=== PATIENT | male | born 1955 | race Caucasian/White ===

== ENCOUNTER 2019-09-11 08:15 | Emergency (ER) | payer MEDICAID, OTHER ==
[~2019-09-11] VITALS: Ht 167.6 cm; Wt 69.9 kg
[~2019-09-11 08:15] MED LIST: LEVE750T4 PO; LEVO100T4 PO; LITH300T4 PO; OLAN20TA2 PO; OXCA300T28 PO; TOPI50TA PO
[2019-09-11] MEDS ORDERED: PALI234D IM (08:33)
[2019-09-11] MEDS ORDERED: SODIUM CHLORIDE 0.9% 1,000 ML IV ONE (09:00)
[2019-09-11] MEDS ORDERED: KETOROLAC TROMETHAMINE 30 MG/ML VIAL IVP ONE (09:00)
[2019-09-11 09:18] LABS: LYMPHOCYTES # (AUTO) 1.3 K/uL (1.0-4.8)
[2019-09-11 09:38] LABS: ANION GAP 7 mmol/L (8-16); CALCIUM, TOTAL 8.9 mg/dL (8.8-10.5); CARBON DIOXIDE 30 mmol/L (22-29); CHLORIDE 101 mmol/L (98-107); CREATININE 0.95 mg/dL (0.60-1.30); GLOMERULAR FILTR. RATE CALC > 60 mL/min (>60); GLUCOSE,RANDOM 134 mg/dL (70-110); POTASSIUM 3.5 mmol/L (3.5-5.1); SODIUM SERUM 138 mmol/L (136-145); UREA NITROGEN, BLOOD 13 mg/dL (7-18)
[2019-09-11 09:43] LABS: BASOPHILS % (AUTO) 0.2 % (0.0-2.0); EOSINOPHILS % (AUTO) 0.8 % (1.0-6.0); HEMATOCRIT 42.2 % (41-53); HEMOGLOBIN 14.3 g/dL (13.5-17.5); LYMPHOCYTES % (AUTO) 11.6 % (22.0-44.0); MEAN CORPUSCULAR HEMOGLOBIN 30.5 pg (26.0-34.0); MEAN CORPUSCULAR HGB CONC 33.8 G/dL (31.0-37.0); MEAN CORPUSCULAR VOLUME 90 fL (80-100); MONOCYTES # (AUTO) 0.8 K/uL (0.1-1.0); MONOCYTES % (AUTO) 7.2 % (2.0-9.0); NEUTROPHILS # (AUTO) 8.7 K/uL (1.8-7.7); NEUTROPHILS % (AUTO) 80.2 % (40.0-70.0); PLATELET COUNT (AUTO) 206 K/uL (150-450); RED BLOOD CELL COUNT(AUTO) 4.68 MIL/uL (4.50-5.90); RED CELL DISTRIBUTION WIDTH 14.4 % (11.5-14.5)
[2019-09-11 09:53] LABS: ALANINE AMINOTRANSFERASE 44 U/L (12-78); ALBUMIN 3.3 g/dL (3.4-5.0); ALKALINE PHOSPHATASE 71 U/L (46-116); ASPARTATE AMINOTRANSFERASE 24 U/L (15-37); BILIRUBIN,TOTAL 0.3 mg/dL (0.1-1.0); LIPASE 84 U/L (73-393); TOTAL PROTEIN, SERUM 6.4 g/dL (6.4-8.2)
[2019-09-11 10:24] LABS: APPEARANCE,URINE CLEAR (CLEAR); BACTERIA,URINE None Seen /HPF (None Seen); BILIRUBIN,URINE NEGATIVE (NEGATIVE); GLUCOSE, URINE (UA) NEGATIVE (NEGATIVE); KETONES,URINE NEGATIVE (NEGATIVE); LEUKOCYTE ESTERASE ,URINE NEGATIVE (NEGATIVE); NITRATE,URINE NEGATIVE (NEGATIVE); OCCULT BLOOD,URINE NEGATIVE (NEGATIVE); PROTEIN,URINE NEGATIVE (NEGATIVE); RBC,URINE None Seen /HPF (0-2); UROBILINOGEN,URINE 0.2 mg/dL (<=1.0); WBC,URINE None Seen /HPF (0-5)
[2019-09-11 10:34] LABS: AMPHET/METH SCREEN,URINE NEGATIVE (NEGATIVE); BARBITURATE SCREEN, URINE NEGATIVE (NEGATIVE); BENZODIAZEPINES SCREEN,URINE NEGATIVE (NEGATIVE); CANNABINOID SCREEN,URINE NEGATIVE (NEGATIVE); COCAINE SCREEN,URINE NEGATIVE (NEGATIVE); METHADONE SCREEN, URINE NEGATIVE (NEGATIVE); OPIATE SCREEN,URINE NEGATIVE (NEGATIVE)
[2019-09-11 10:47] LABS: PHENCYCLIDINE SCREEN,URINE NEGATIVE (NEGATIVE)
[2019-09-11] MEDS ORDERED: ACETAMINOPHEN 500 MG TABLET PO ONE (11:30)
[2019-09-11] MEDS ORDERED: MAGNESIUM CITRATE 300 ML ORAL SOLUTION PO ONE (11:30)
[2019-09-11 12:06] VITALS: BP 102/68
== END 2019-09-11 13:20 | disposition home or self-care (01) ==
LOC: EMS 08:15
DX: E27.9 Disorder of adrenal gland, unspecified (principal); Z76.5 Malingerer [conscious simulation]; F17.210 Nicotine dependence, cigarettes, uncomplicated; J44.9 Chronic obstructive pulmonary disease, unspecified; F32.9 Major depressive disorder, single episode, unspecified; F20.9 Schizophrenia, unspecified; Z88.0 Allergy status to penicillin
CPT/HCPCS: 36415; 74176; 80053; 80307; 81001; 83690; 85025; 96374; 99284; G0480; J1885; J7030

== ENCOUNTER 2019-09-12 02:06 | Emergency (ER) | payer OTHER ==
[~2019-09-12] VITALS: Ht 167.6 cm; Wt 70.0 kg
[~2019-09-12 02:06] MED LIST changes: -LEVE750T4 PO; -LEVO100T4 PO; -LITH300T4 PO; -OLAN20TA2 PO; -OXCA300T28 PO; +PALI234D IM; -TOPI50TA PO
[2019-09-12] MEDS ORDERED: KETOROLAC TROMETHAMINE 30 MG/ML VIAL IVP ONE (02:30)
[2019-09-12] MEDS ORDERED: ALBUTEROL SULFATE HFA 90 MCG/PUFF 8 GM INHALER IH ONE (02:30)
[2019-09-12] MEDS ORDERED: MAGNESIUM CITRATE 300 ML ORAL SOLUTION PO ONE (02:30)
[2019-09-12] MEDS ORDERED: ACETAMINOPHEN 500 MG TABLET PO ONE (02:30)
[2019-09-12] MEDS ORDERED: SODIUM CHLORIDE 0.9% 1,000 ML IV ONE (02:30)
[2019-09-12 03:29] LABS: BASOPHILS % (AUTO) 0.3 % (0.0-2.0); HEMATOCRIT 40.9 % (41-53); HEMOGLOBIN 13.8 g/dL (13.5-17.5); LYMPHOCYTES # (AUTO) 1.7 K/uL (1.0-4.8); LYMPHOCYTES % (AUTO) 17.4 % (22.0-44.0); MEAN CORPUSCULAR HEMOGLOBIN 30.5 pg (26.0-34.0); MEAN CORPUSCULAR HGB CONC 33.8 G/dL (31.0-37.0); MEAN CORPUSCULAR VOLUME 90 fL (80-100); MONOCYTES # (AUTO) 1.1 K/uL (0.1-1.0); NEUTROPHILS # (AUTO) 6.7 K/uL (1.8-7.7); NEUTROPHILS % (AUTO) 70.3 % (40.0-70.0); PLATELET COUNT (AUTO) 206 K/uL (150-450); RED BLOOD CELL COUNT(AUTO) 4.53 MIL/uL (4.50-5.90); RED CELL DISTRIBUTION WIDTH 14.7 % (11.5-14.5)
[2019-09-12 03:46] LABS: ANION GAP 2 mmol/L (8-16); CALCIUM, TOTAL 8.8 mg/dL (8.8-10.5); CARBON DIOXIDE 35 mmol/L (22-29); CHLORIDE 102 mmol/L (98-107); CREATININE 0.97 mg/dL (0.60-1.30); GLOMERULAR FILTR. RATE CALC > 60 mL/min (>60); GLUCOSE,RANDOM 118 mg/dL (70-110); POTASSIUM 3.8 mmol/L (3.5-5.1); SODIUM SERUM 139 mmol/L (136-145); UREA NITROGEN, BLOOD 14 mg/dL (7-18)
[2019-09-12 03:52] LABS: ALANINE AMINOTRANSFERASE 43 U/L (12-78); ALKALINE PHOSPHATASE 87 U/L (46-116); ASPARTATE AMINOTRANSFERASE 20 U/L (15-37); BILIRUBIN,TOTAL 0.1 mg/dL (0.1-1.0); LIPASE 95 U/L (73-393)
[2019-09-12 04:28] VITALS: BP 125/75
== END 2019-09-12 05:00 | disposition home or self-care (01) ==
LOC: EMS 02:06
DX: S22.32XA Fracture of one rib, left side, initial encounter for closed fracture (principal); J44.9 Chronic obstructive pulmonary disease, unspecified; F32.9 Major depressive disorder, single episode, unspecified; F20.9 Schizophrenia, unspecified; F17.210 Nicotine dependence, cigarettes, uncomplicated; Z88.0 Allergy status to penicillin; X58.XXXA Exposure to other specified factors, initial encounter; Y93.89 Activity, other specified; Y92.89 Other specified places as the place of occurrence of the external cause; Y99.8 Other external cause status
CPT/HCPCS: 36415; 71101; 80053; 83690; 83880; 84484; 85025; 94640; 96361; 96374; 99284; G0238; J1885; J7030; J3535

== ENCOUNTER 2019-10-26 08:39 | Emergency (ER) | payer OTHER ==
[~2019-10-26] VITALS: Ht 177.8 cm; Wt 75.0 kg
[2019-10-26 09:37] LABS: BASOPHILS % (AUTO) 0.8 % (0.0-2.0); EOSINOPHILS % (AUTO) 1.6 % (1.0-6.0); HEMATOCRIT 41.5 % (41-53); HEMOGLOBIN 13.8 g/dL (13.5-17.5); LYMPHOCYTES # (AUTO) 1.6 K/uL (1.0-4.8); LYMPHOCYTES % (AUTO) 18.1 % (22.0-44.0); MEAN CORPUSCULAR HEMOGLOBIN 30.2 pg (26.0-34.0); MEAN CORPUSCULAR HGB CONC 33.2 G/dL (31.0-37.0); MEAN CORPUSCULAR VOLUME 91 fL (80-100); MONOCYTES # (AUTO) 0.8 K/uL (0.1-1.0); MONOCYTES % (AUTO) 9.1 % (2.0-9.0); NEUTROPHILS # (AUTO) 6.4 K/uL (1.8-7.7); NEUTROPHILS % (AUTO) 70.4 % (40.0-70.0); PLATELET COUNT (AUTO) 275 K/uL (150-450); RED BLOOD CELL COUNT(AUTO) 4.56 MIL/uL (4.50-5.90); RED CELL DISTRIBUTION WIDTH 15.2 % (11.5-14.5)
[2019-10-26 09:46] LABS: ANION GAP 5 mmol/L (8-16); CALCIUM, TOTAL 9.1 mg/dL (8.8-10.5); CARBON DIOXIDE 32 mmol/L (22-29); CHLORIDE 103 mmol/L (98-107); CREATININE 1.29 mg/dL (0.60-1.30); GLOMERULAR FILTR. RATE CALC 56 mL/min (>60); GLUCOSE,RANDOM 161 mg/dL (70-110); SODIUM SERUM 140 mmol/L (136-145); UREA NITROGEN, BLOOD 13 mg/dL (7-18)
[2019-10-26 09:52] LABS: ALANINE AMINOTRANSFERASE 33 U/L (12-78); ALBUMIN 3.2 g/dL (3.4-5.0); ALKALINE PHOSPHATASE 87 U/L (46-116); ASPARTATE AMINOTRANSFERASE 18 U/L (15-37); BILIRUBIN,TOTAL 0.2 mg/dL (0.1-1.0); TOTAL PROTEIN, SERUM 6.3 g/dL (6.4-8.2)
[2019-10-26 10:51] LABS: AMPHET/METH SCREEN,URINE NEGATIVE (NEGATIVE); BARBITURATE SCREEN, URINE NEGATIVE (NEGATIVE); BENZODIAZEPINES SCREEN,URINE NEGATIVE (NEGATIVE); CANNABINOID SCREEN,URINE NEGATIVE (NEGATIVE); COCAINE SCREEN,URINE NEGATIVE (NEGATIVE); METHADONE SCREEN, URINE NEGATIVE (NEGATIVE); OPIATE SCREEN,URINE NEGATIVE (NEGATIVE)
[2019-10-26 10:52] LABS: PHENCYCLIDINE SCREEN,URINE NEGATIVE (NEGATIVE)
[2019-10-26 11:09] VITALS: BP 117/70
== END 2019-10-26 13:31 | disposition home or self-care (01) ==
LOC: EMS 08:40
DX: F20.9 Schizophrenia, unspecified (principal); Z88.0 Allergy status to penicillin; Z20.828 Contact with and (suspected) exposure to other viral communicable diseases
CPT/HCPCS: 36415; 80053; 80307; 85025; 87426; 99284; G0480

== ENCOUNTER 2019-10-29 17:33 | Inpatient (IN) | payer MEDICAID ==
[~2019-10-29] VITALS: Ht 175.3 cm; Wt 65.1 kg
[2019-10-30 01:15] VITALS: BP 136/76
[2019-10-30] MEDS: ZOLPIDEM TARTRATE 10 MG TABLET PO PRN (01:31)
[2019-10-30] MEDS ORDERED: ALBUTEROL SULFATE HFA 90 MCG/PUFF 8 GM INHALER IH PRN (08:00)
[2019-10-30] MEDS ORDERED: OMEPRAZOLE 20 MG CAPSULE PO PRN (08:15)
[2019-10-30] MEDS ORDERED: DOCUSATE SODIUM 100 MG CAPSULE PO PRN (08:15)
[2019-10-30] MEDS ORDERED: BACITRACIN 28 GM OINTMENT TP PRN (08:15)
[2019-10-30] MEDS ORDERED: MAGNESIUM HYDROXIDE SUSPENSION 30 ML UDCUP PO PRN (08:15)
[2019-10-30] MEDS ORDERED: LOPERAMIDE HCL 2 MG CAPSULE PO PRN (08:15)
[2019-10-30] MEDS ORDERED: BENZOCAINE/MENTHOL LOZENGE PO PRN (08:15)
[2019-10-30] MEDS ORDERED: CloNIDine HCL 0.1 MG TABLET PO PRN (08:15)
[2019-10-30] MEDS ORDERED: ONDANSETRON HCL 4 MG TABLET PO PRN (08:15)
[2019-10-30] MEDS ORDERED: MAG HYDROX/AL HYDROX/SIMETH ES 30 ML SUSPENSION UDCUP PO PRN (08:15)
[2019-10-30] MEDS ORDERED: PETROLATUM,WHITE 28 GM JELLY TP PRN (08:15)
[2019-10-30 08:30] VITALS: BP 127/73
[2019-10-30] MEDS: IBUPROFEN 600 MG TABLET PO PRN (09:16)
[2019-10-30 16:20] VITALS: BP 122/71
[2019-10-30] MEDS: LORazepam 1 MG TABLET PO PRN (20:06)
[2019-10-30] MEDS: PALIPERIDONE 9 MG ER TABLET PO SCH (20:57)
[2019-10-30] MEDS: ACETAMINOPHEN 325 MG TABLET PO PRN (22:17)
[2019-10-31 04:43] VITALS: BP 125/82
[2019-10-31 08:25] VITALS: BP 102/64
[2019-10-31] MEDS: ACETAMINOPHEN 325 MG TABLET PO PRN (08:47)
[2019-10-31] MEDS: LORazepam 1 MG TABLET PO PRN ×2 (08:47→19:32)
[2019-10-31 16:27] VITALS: BP 126/83
[2019-10-31] MEDS: IBUPROFEN 600 MG TABLET PO PRN (19:32)
[2019-10-31] MEDS: PALIPERIDONE 9 MG ER TABLET PO SCH (20:03)
[2019-11-01 00:21] VITALS: BP 122/84
[2019-11-01] MEDS: ZOLPIDEM TARTRATE 10 MG TABLET PO PRN ×2 (00:23→21:56)
[2019-11-01] MEDS: LORazepam 1 MG TABLET PO PRN ×2 (00:23→17:13)
[2019-11-01 09:22] VITALS: BP 126/77
[2019-11-01] MEDS: IBUPROFEN 600 MG TABLET PO PRN (13:34)
[2019-11-01 16:13] VITALS: BP 135/83
[2019-11-01] MEDS: ACETAMINOPHEN 325 MG TABLET PO PRN (18:31)
[2019-11-01] MEDS: PALIPERIDONE 9 MG ER TABLET PO SCH (21:04)
[2019-11-02 01:14] VITALS: BP 123/71
[2019-11-02] MEDS: IBUPROFEN 600 MG TABLET PO PRN ×3 (04:46→18:09)
[2019-11-02 04:49] VITALS: BP 123/79
[2019-11-02 08:22] VITALS: BP 126/85
[2019-11-02] MEDS: HALOPERIDOL 5 MG TABLET PO PRN ×2 (09:03→13:43)
[2019-11-02] MEDS: LORazepam 1 MG TABLET PO PRN ×2 (09:03→13:42)
[2019-11-02 09:41] VITALS: BP 124/81
[2019-11-02 16:10] VITALS: BP 128/75
[2019-11-02] MEDS: PALIPERIDONE 9 MG ER TABLET PO SCH (20:29)
[2019-11-03 01:00] VITALS: BP 122/72
[2019-11-03 08:30] VITALS: BP 117/67
[2019-11-03] MEDS: LORazepam 1 MG TABLET PO PRN (08:30)
[2019-11-03] MEDS: IBUPROFEN 600 MG TABLET PO PRN ×2 (08:30→16:26)
[2019-11-03 08:33] VITALS: BP 117/67
[2019-11-03 14:01] VITALS: BP 135/92
[2019-11-03] MEDS: ACETAMINOPHEN 325 MG TABLET PO PRN ×2 (14:01→19:54)
[2019-11-03 16:38] VITALS: BP 101/70
[2019-11-03] MEDS: PALIPERIDONE 9 MG ER TABLET PO SCH (19:53)
[2019-11-03] MEDS: ALBUTEROL SULFATE HFA 90 MCG/PUFF 8 GM INHALER IH PRN (21:03)
[2019-11-04 00:05] VITALS: BP 136/84
[2019-11-04] MEDS: ZOLPIDEM TARTRATE 10 MG TABLET PO PRN ×2 (00:16→20:43)
[2019-11-04] MEDS: IBUPROFEN 600 MG TABLET PO PRN ×2 (00:16→18:30)
[2019-11-04 08:38] VITALS: BP 133/80
[2019-11-04] MEDS: LORazepam 1 MG TABLET PO PRN (09:56)
[2019-11-04 16:27] VITALS: BP 119/74
[2019-11-04] MEDS: PALIPERIDONE 9 MG ER TABLET PO SCH (20:33)
[2019-11-04] MEDS: ALBUTEROL SULFATE HFA 90 MCG/PUFF 8 GM INHALER IH PRN (21:04)
[2019-11-05 01:00] VITALS: BP 134/77
[2019-11-05] MEDS ORDERED: PALI9TAB15 PO (07:29)
[2019-11-05 08:46] VITALS: BP 115/78
== END 2019-11-05 13:00 | disposition home or self-care (01) | DRG 750 ==
LOC: B2S 20:45
PROVIDERS: ADMIT Psychiatry & Neurology Psychiatry; ATTEND Psychiatry & Neurology Psychiatry
DX: F20.0 Paranoid schizophrenia (principal); E03.9 Hypothyroidism, unspecified; G40.909 Epilepsy, unspecified, not intractable, without status epilepticus; K21.9 Gastro-esophageal reflux disease without esophagitis; G47.00 Insomnia, unspecified; K59.00 Constipation, unspecified; F19.10 Other psychoactive substance abuse, uncomplicated; Z88.0 Allergy status to penicillin
CPT/HCPCS: 84439; 87081; J3535

== ENCOUNTER 2020-01-14 11:49 | Emergency (ER) | payer MEDICAID, OTHER ==
[~2020-01-14] VITALS: Ht 175.3 cm; Wt 68.2 kg
[~2020-01-14 11:49] MED LIST changes: -PALI234D IM; +PALI9TAB15 PO
[2020-01-14 11:50] VITALS: BP 165/56
[2020-01-14] MEDS ORDERED: HYD25 PO (12:09)
[2020-01-14] MEDS ORDERED: METO25 PO (12:09)
[2020-01-14] MEDS ORDERED: ATOR10TA84 PO (12:09)
[2020-01-14] MEDS ORDERED: LEVO88TA4 PO (12:09)
[2020-01-14] MEDS ORDERED: TRIA1TAB5 PO (12:09)
[2020-01-14 14:18] LABS: ANION GAP 11 mmol/L (8-16); CALCIUM, TOTAL 9.6 mg/dL (8.8-10.5); CARBON DIOXIDE 29 mmol/L (22-29); CHLORIDE 101 mmol/L (98-107); CREATININE 0.68 mg/dL (0.60-1.30); GLOMERULAR FILTR. RATE CALC > 60 mL/min (>60); GLUCOSE,RANDOM 121 mg/dL (70-110); SODIUM SERUM 141 mmol/L (136-145); UREA NITROGEN, BLOOD 24 mg/dL (7-18)
[2020-01-14 14:21] LABS: BASOPHILS % (AUTO) 0.2 % (0.0-2.0); EOSINOPHILS % (AUTO) 1.2 % (1.0-6.0); HEMATOCRIT 48.2 % (41-53); HEMOGLOBIN 16.1 g/dL (13.5-17.5); LYMPHOCYTES % (AUTO) 16.8 % (22.0-44.0); MEAN CORPUSCULAR HEMOGLOBIN 29.5 pg (26.0-34.0); MEAN CORPUSCULAR HGB CONC 33.3 G/dL (31.0-37.0); MEAN CORPUSCULAR VOLUME 88 fL (80-100); MONOCYTES # (AUTO) 0.8 K/uL (0.1-1.0); MONOCYTES % (AUTO) 6.9 % (2.0-9.0); NEUTROPHILS % (AUTO) 74.9 % (40.0-70.0); PLATELET COUNT (AUTO) 258 K/uL (150-450); RED BLOOD CELL COUNT(AUTO) 5.45 MIL/uL (4.50-5.90); RED CELL DISTRIBUTION WIDTH 14.5 % (11.5-14.5)
[2020-01-14 14:24] LABS: ALANINE AMINOTRANSFERASE 31 U/L (12-78); ALBUMIN 4.2 g/dL (3.4-5.0); ALKALINE PHOSPHATASE 113 U/L (46-116); ASPARTATE AMINOTRANSFERASE 22 U/L (15-37); BILIRUBIN,TOTAL 0.3 mg/dL (0.1-1.0); LIPASE 80 U/L (73-393); TOTAL PROTEIN, SERUM 7.6 g/dL (6.4-8.2)
[2020-01-14 15:11] LABS: FREE T4 (FREE THYROXINE) 1.38 ng/dL (0.76-1.46); THYROID STIMULATING HORMONE 0.11 uIU/mL (0.36-3.74)
== END 2020-01-14 15:49 | disposition left against medical advice (07) ==
LOC: EMS 11:49
DX: R10.13 Epigastric pain (principal); F25.9 Schizoaffective disorder, unspecified; F17.210 Nicotine dependence, cigarettes, uncomplicated; J44.9 Chronic obstructive pulmonary disease, unspecified; F32.9 Major depressive disorder, single episode, unspecified; Z88.0 Allergy status to penicillin
CPT/HCPCS: 84439; 84443; 93005

== ENCOUNTER 2020-01-15 01:31 | Emergency (ER) | payer OTHER ==
[~2020-01-15] VITALS: Ht 172.7 cm; Wt 63.6 kg
[~2020-01-15 01:31] MED LIST changes: +ATOR10TA84 PO; +HYD25 PO; +LEVO88TA4 PO; +METO25 PO; +TRIA1TAB5 PO
[2020-01-15 03:14] VITALS: BP 115/64
== END 2020-01-15 05:03 | disposition home or self-care (01) ==
LOC: EMS 01:37
DX: M25.561 Pain in right knee (principal); J44.9 Chronic obstructive pulmonary disease, unspecified; F32.9 Major depressive disorder, single episode, unspecified; F20.9 Schizophrenia, unspecified; F17.210 Nicotine dependence, cigarettes, uncomplicated; Z88.0 Allergy status to penicillin
CPT/HCPCS: Z7502

== ENCOUNTER 2020-10-02 20:00 | Inpatient (IN) | payer OTHER ==
[~2020-10-02] VITALS: Ht 175.3 cm; Wt 59.5 kg
[2020-10-02 21:12] LABS: BASOPHILS % (AUTO) 0.3 % (0.0-2.0); EOSINOPHILS % (AUTO) 0.7 % (1.0-6.0); HEMOGLOBIN 15.8 g/dL (13.5-17.5); LYMPHOCYTES # (AUTO) 1.5 K/uL (1.0-4.8); LYMPHOCYTES % (AUTO) 11.1 % (22.0-44.0); MEAN CORPUSCULAR HEMOGLOBIN 30.1 pg (26.0-34.0); MEAN CORPUSCULAR HGB CONC 32.8 G/dL (31.0-37.0); MEAN CORPUSCULAR VOLUME 92 fL (80-100); MONOCYTES # (AUTO) 0.9 K/uL (0.1-1.0); MONOCYTES % (AUTO) 6.4 % (2.0-9.0); NEUTROPHILS # (AUTO) 10.9 K/uL (1.8-7.7); NEUTROPHILS % (AUTO) 81.5 % (40.0-70.0); PLATELET COUNT (AUTO) 266 K/uL (150-450); RED BLOOD CELL COUNT(AUTO) 5.24 MIL/uL (4.50-5.90); RED CELL DISTRIBUTION WIDTH 14.1 % (11.5-14.5)
[2020-10-02 21:26] LABS: CALCIUM, TOTAL 9.6 mg/dL (8.8-10.5); CREATININE 1.36 mg/dL (0.60-1.30); POTASSIUM 3.7 mmol/L (3.5-5.1)
[2020-10-02 21:32] LABS: ALBUMIN 4.5 g/dL (3.4-5.0); BILIRUBIN,TOTAL 0.4 mg/dL (0.1-1.0); TOTAL PROTEIN, SERUM 8.5 g/dL (6.4-8.2)
[2020-10-02] MEDS ORDERED: SODIUM CHLORIDE 0.9% 1,000 ML IV ONE (22:30)
[2020-10-02] MEDS ORDERED: ONDANSETRON HCL 4 MG/2 ML VIAL IVP ONE (22:30)
[2020-10-02] MEDS ORDERED: IOHEXOL 350 MG/ML 100 ML VIAL ONE (22:33)
[2020-10-02] MEDS ORDERED: SODIUM CHLORIDE 0.9% 100 ML ONE (22:33)
[2020-10-02 22:37] LABS: APPEARANCE,URINE CLEAR (CLEAR); BILIRUBIN,URINE NEGATIVE (NEGATIVE); GLUCOSE, URINE (UA) NEGATIVE (NEGATIVE); KETONES,URINE NEGATIVE (NEGATIVE); LEUKOCYTE ESTERASE ,URINE NEGATIVE (NEGATIVE); NITRATE,URINE NEGATIVE (NEGATIVE); OCCULT BLOOD,URINE NEGATIVE (NEGATIVE); PH,URINE 6.5 (5.0-8.0); PROTEIN,URINE NEGATIVE (NEGATIVE)
[2020-10-03] MEDS ORDERED: MINERAL OIL 133 ML ENEMA PR ONE (01:00)
[2020-10-03] MEDS ORDERED: CIPROFLOXACIN 400 MG/D5% WATER 200 ML IV ONE (01:00)
[2020-10-03] MEDS ORDERED: ONDANSETRON HCL 4 MG/2 ML VIAL IVP PRN ×2 (01:00→12:00)
[2020-10-03] MEDS ORDERED: 0.9% SODIUM CHLORIDE 10 ML SYRINGE IVP PRN (01:00)
[2020-10-03] MEDS ORDERED: PEG 3350/NA SULF,BICARB,CL/KCL 4000 ML SOLUTION PO ONE (01:00)
[2020-10-03] MEDS ORDERED: ACETAMINOPHEN 325 MG TABLET PO PRN ×2 (01:00→12:00)
[2020-10-03] MEDS ORDERED: MetroNIDAZOLE 500 MG/NACL 100 ML IV ONE (01:00)
[2020-10-03 01:31] LABS: COVID AG,FIA SOURCE NASOPHARYNGEAL
[2020-10-03] MEDS ORDERED: SODIUM CHLORIDE 0.9% 500 ML IV ONE (02:10)
[2020-10-03 02:18] VITALS: BP 116/77
[2020-10-03 07:40] VITALS: BP 118/68
[2020-10-03] MEDS ORDERED: SODIUM CHLORIDE 0.9% 1,000 ML IV ONE (12:00)
[2020-10-03] MEDS ORDERED: ZOLPIDEM TARTRATE 5 MG TABLET PO PRN (12:00)
[2020-10-03] MEDS ORDERED: HYDROCODONE/ACETAMINOPHEN 5-325 MG TABLET PO PRN (12:00)
[2020-10-03] MEDS ORDERED: MAGNESIUM HYDROXIDE SUSPENSION 30 ML UDCUP PO PRN (12:00)
[2020-10-03] MEDS ORDERED: BISACODYL 10 MG RECTAL RECTAL SUPPOSITORY PR PRN (12:00)
[2020-10-03] MEDS ORDERED: MORPHINE SULFATE 2 MG/ML SYRINGE IVP PRN (12:00)
[2020-10-03] MEDS: POLYETHYLENE GLYCOL 3350 17 GM PACKET PO SCH ×2 (12:43→20:21)
[2020-10-03] MEDS: BISACODYL 10 MG RECTAL RECTAL SUPPOSITORY PR SCH ×2 (12:44→20:21)
[2020-10-03] MEDS: MetroNIDAZOLE 500 MG/NACL 100 ML IV SCH ×2 (12:46→20:21)
[2020-10-03] MEDS: CIPROFLOXACIN 400 MG/D5% WATER 200 ML IV SCH (14:27)
[2020-10-03 15:14] VITALS: BP 95/59
[2020-10-03] MEDS: HEPARIN SODIUM,PORCINE 5,000 UNITS/ML VIAL SQ SCH ×2 (18:12→23:37)
[2020-10-03 20:00] VITALS: BP 99/58
[2020-10-03] MEDS: DOCUSATE SODIUM 100 MG CAPSULE PO SCH (20:21)
[2020-10-04] VITALS: BP 101/61
[2020-10-04] MEDS: CIPROFLOXACIN 400 MG/D5% WATER 200 ML IV SCH (02:01)
[2020-10-04 04:18] VITALS: BP 100/59
[2020-10-04] MEDS: MetroNIDAZOLE 500 MG/NACL 100 ML IV SCH ×2 (05:03→12:11)
[2020-10-04 06:02] LABS: BASOPHILS % (AUTO) 0.4 % (0.0-2.0); EOSINOPHILS % (AUTO) 2.7 % (1.0-6.0); HEMATOCRIT 38.1 % (41-53); HEMOGLOBIN 12.6 g/dL (13.5-17.5); LYMPHOCYTES # (AUTO) 2.3 K/uL (1.0-4.8); LYMPHOCYTES % (AUTO) 17.8 % (22.0-44.0); MEAN CORPUSCULAR HEMOGLOBIN 30.3 pg (26.0-34.0); MEAN CORPUSCULAR VOLUME 92 fL (80-100); MONOCYTES # (AUTO) 1.1 K/uL (0.1-1.0); MONOCYTES % (AUTO) 8.5 % (2.0-9.0); NEUTROPHILS # (AUTO) 9.2 K/uL (1.8-7.7); NEUTROPHILS % (AUTO) 70.6 % (40.0-70.0); PLATELET COUNT (AUTO) 197 K/uL (150-450); RED BLOOD CELL COUNT(AUTO) 4.16 MIL/uL (4.50-5.90); RED CELL DISTRIBUTION WIDTH 14.2 % (11.5-14.5)
[2020-10-04 06:30] LABS: ANION GAP 4 mmol/L (8-16); CALCIUM, TOTAL 8.3 mg/dL (8.8-10.5); CARBON DIOXIDE 31 mmol/L (22-29); CHLORIDE 107 mmol/L (98-107); CREATININE 0.98 mg/dL (0.60-1.30); GLOMERULAR FILTR. RATE CALC > 60 mL/min (>60); GLUCOSE,RANDOM 96 mg/dL (70-110); POTASSIUM 3.6 mmol/L (3.5-5.1); SODIUM SERUM 142 mmol/L (136-145); UREA NITROGEN, BLOOD 20 mg/dL (7-18)
[2020-10-04 07:19] VITALS: BP 105/73
[2020-10-04] MEDS ORDERED: PANTOPRAZOLE SODIUM 40 MG DR TABLET PO SCH (09:00)
[2020-10-04] MEDS: DOCUSATE SODIUM 100 MG CAPSULE PO SCH (10:47)
[2020-10-04] MEDS: HEPARIN SODIUM,PORCINE 5,000 UNITS/ML VIAL SQ SCH (10:47)
[2020-10-04] MEDS: POLYETHYLENE GLYCOL 3350 17 GM PACKET PO SCH (10:48)
[2020-10-04] MEDS: BISACODYL 10 MG RECTAL RECTAL SUPPOSITORY PR SCH (10:48)
[2020-10-04 12:17] LABS: THYROID STIMULATING HORMONE 0.21 uIU/mL (0.36-3.74)
[2020-10-04] MEDS ORDERED: DOCU100C33 PO (13:01)
== END 2020-10-04 14:50 | disposition home or self-care (01) | DRG 254 ==
LOC: EMS 20:27 → 6N 10-03 01:00
PROVIDERS: ADMIT Internal Medicine; ATTEND Internal Medicine
DX: K62.89 Other specified diseases of anus and rectum (principal); N17.9 Acute kidney failure, unspecified; E44.1 Mild protein-calorie malnutrition; K52.89 Other specified noninfective gastroenteritis and colitis; K59.00 Constipation, unspecified; E05.90 Thyrotoxicosis, unspecified without thyrotoxic crisis or storm; Z20.822 Contact with and (suspected) exposure to COVID-19; E78.5 Hyperlipidemia, unspecified; T38.1X5A Adverse effect of thyroid hormones and substitutes, initial encounter; I10 Essential (primary) hypertension; D17.79 Benign lipomatous neoplasm of other sites; F32.9 Major depressive disorder, single episode, unspecified; J44.9 Chronic obstructive pulmonary disease, unspecified; E27.9 Disorder of adrenal gland, unspecified; F20.9 Schizophrenia, unspecified; G40.909 Epilepsy, unspecified, not intractable, without status epilepticus; F17.210 Nicotine dependence, cigarettes, uncomplicated; Z68.1 Body mass index [BMI] 19.9 or less, adult; Z79.899 Other long term (current) drug therapy; Z88.0 Allergy status to penicillin; Y92.89 Other specified places as the place of occurrence of the external cause
CPT/HCPCS: 74177; 80048; 80053; 81003; 83690; 84443; 85025; 99285; A9575; J0744; J1644; J2405; J3490; J7030; J7040; J7050

== ENCOUNTER 2023-09-09 19:06 | Emergency (ER) | payer MEDICARE, OTHER ==
[~2023-09-09] VITALS: Ht 175.3 cm; Wt 81.8 kg
[~2023-09-09 19:06] MED LIST changes: +ATOR10TA69 PO; -ATOR10TA84 PO; +CITA10TA99 PO; +DOCU100C33 PO; -HYD25 PO; -LEVO88TA4 PO; +LEVO88TA7 PO; +LURA40TA4 PO; +METO-408 PO; -METO25 PO; +PALI819S IM; -PALI9TAB15 PO
[2023-09-09 19:24] VITALS: BP 144/80; PULSE 130; RESP 20; TEMP 98.7
[2023-09-09 19:49] LABS: BASOPHILS % (AUTO) 0.6 % (0.0-2.0); HEMATOCRIT 42.3 % (41-53); HEMOGLOBIN 13.6 g/dL (13.5-17.5); MEAN CORPUSCULAR HEMOGLOBIN 29.1 pg (26.0-34.0); MEAN CORPUSCULAR HGB CONC 32.1 G/dL (31.0-37.0); MEAN CORPUSCULAR VOLUME 91 fL (80-100); MONOCYTES # (AUTO) 0.7 K/uL (0.1-1.0); MONOCYTES % (AUTO) 7.5 % (2.0-9.0); NEUTROPHILS # (AUTO) 7.8 K/uL (1.8-7.7); NEUTROPHILS % (AUTO) 79.9 % (40.0-70.0); PLATELET COUNT (AUTO) 256 K/uL (150-450); RED BLOOD CELL COUNT(AUTO) 4.67 MIL/uL (4.50-5.90); RED CELL DISTRIBUTION WIDTH 14.6 % (11.5-14.5); WHITE BLOOD COUNT (AUTO) 9.7 K/uL (4.5-11.0)
[2023-09-09 20:02] LABS: COVID AG,FIA SOURCE NASAL SWAB
[2023-09-09] MEDS: LORazepam 2 MG TABLET PO ONE (20:06)
[2023-09-09 20:14] LABS: ANION GAP 5 mmol/L (8-16); CALCIUM, TOTAL 9.1 mg/dL (8.8-10.5); CARBON DIOXIDE 34 mmol/L (22-29); CHLORIDE 102 mmol/L (98-107); CREATININE 1.17 mg/dL (0.60-1.30); GLOMERULAR FILTR. RATE CALC > 60 mL/min (>60); GLUCOSE,RANDOM 194 mg/dL (70-110); POTASSIUM 3.3 mmol/L (3.5-5.1); SODIUM SERUM 141 mmol/L (136-145); UREA NITROGEN, BLOOD 28 mg/dL (7-18)
[2023-09-09 20:21] LABS: TROPONIN I-HIGH SENSITIVITY 10 ng/L (<76)
[2023-09-09 20:40] LABS: CREATINE KINASE, TOTAL ONLY 160 U/L (39-308)
[2023-09-09 20:53] LABS: B-TYPE NATRIURETIC PEPTIDE 91 pg/mL (0-100)
[2023-09-09 21:12] LABS: SARS-COV2 (COVID) ANTIGEN,FIA Negative (Negative)
[2023-09-09] MEDS: SODIUM CHLORIDE 0.9% 1,000 ML IV ONE (21:53)
== END 2023-09-09 23:37 ==
LOC: EMS 19:08
DX: R06.02 Shortness of breath (principal); J44.9 Chronic obstructive pulmonary disease, unspecified; F32.A Depression, unspecified; E03.9 Hypothyroidism, unspecified; F20.9 Schizophrenia, unspecified; F17.210 Nicotine dependence, cigarettes, uncomplicated; Z88.0 Allergy status to penicillin; Z04.6 Encounter for general psychiatric examination, requested by authority; Z20.822 Contact with and (suspected) exposure to COVID-19
CPT/HCPCS: 99284; 87426; 80048; 82550; 83880; 84484; 85025; 36415; 93005; J7030

== ENCOUNTER 2023-10-24 12:30 | Inpatient (IN) | payer MEDICARE, OTHER ==
[~2023-10-24 12:30] MED LIST changes: +AMLO2.5T96 PO; -CITA10TA99 PO; -DOCU100C33 PO; +DULO-114 PO; +DULO20CA71 PO; +LURA40TA2 PO; -LURA40TA4 PO; +LURA80TA2 PO; +MELA5TAB40 PO; -METO-408 PO; +MONT-35 PO; -PALI819S IM; -TRIA1TAB5 PO
[2023-10-24 13:50] VITALS: BP 132/86; PULSE 108; RESP 20; TEMP 99.4; O2SAT 92
[2023-10-24] MEDS ORDERED: IPRATROPIUM BROMIDE 0.5 MG/2.5 ML NEB SOLUTION NEB PRN (14:00)
[2023-10-24] MEDS ORDERED: ALBUTEROL SULFATE 2.5 MG/0.5 ML NEB SOLUTION NEB PRN (14:00)
[2023-10-24] MEDS: BENZONATATE 100 MG CAPSULE PO SCH (16:36)
[2023-10-24] MEDS: AZITHROMYCIN 500 MG/NS 250 ML IV SCH (17:46)
[2023-10-24 18:09] LABS: INFLUENZA A-RTPCR,COMBO NEGATIVE (NEGATIVE); INFLUENZA B-RTPCR,COMBO NEGATIVE (NEGATIVE); RESPIRATORY SYNCYTIAL VRS-PCR NEGATIVE (NEGATIVE)
[2023-10-24] MEDS: MethylPREDNISolone SOD SUCC 125 MG/2 ML VIAL IVP SCH (18:31)
[2023-10-24 18:37] LABS: SARS COVID19 RTPCR, COMBO POSITIVE (NEGATIVE)
[2023-10-24] MEDS: IPRATROPIUM BROMIDE 0.5 MG/2.5 ML NEB SOLUTION NEB SCH (19:50)
[2023-10-24] MEDS: ALBUTEROL SULFATE 2.5 MG/0.5 ML NEB SOLUTION NEB SCH (19:50)
[2023-10-24] MEDS: MELATONIN 5 MG TABLET PO SCH (20:43)
[2023-10-24] MEDS: GuaiFENesin SR 600 MG ER TABLET PO SCH (20:43)
[2023-10-24 20:52] VITALS: BP 122/86; PULSE 121; RESP 24; TEMP 99.9; O2SAT 93
[2023-10-24 21:34] VITALS: PULSE 113; O2SAT 93
[2023-10-24] MEDS ORDERED: ACETAMINOPHEN 325 MG TABLET PO PRN (23:00)
[2023-10-24 23:49] VITALS: BP 114/82; PULSE 102; RESP 18; TEMP 97.9; O2SAT 92
[2023-10-25 03:48] VITALS: BP 118/80; PULSE 78; RESP 18; TEMP 97.3; O2SAT 94
[2023-10-25] MEDS ORDERED: SODIUM CHLORIDE 0.9% 1,000 ML ONE (06:04)
[2023-10-25] MEDS: LEVOTHYROXINE SODIUM 88 MCG TABLET PO SCH (06:09)
[2023-10-25 07:00] VITALS: PULSE 70; RESP 18; O2SAT 98
[2023-10-25] MEDS: MONTELUKAST SODIUM 10 MG TABLET PO SCH (08:29)
[2023-10-25] MEDS: ATORVASTATIN CALCIUM 10 MG TABLET PO SCH (08:29)
[2023-10-25] MEDS: DULoxetine HCL 20 MG CAPSULE PO SCH (08:29)
[2023-10-25] MEDS: AmLODIPine BESYLATE 2.5 MG TABLET PO SCH (08:30)
[2023-10-25 08:51] VITALS: BP 127/82; PULSE 111; RESP 20; TEMP 97.3; O2SAT 95
[2023-10-25 11:58] VITALS: BP 129/69; PULSE 109; RESP 22; TEMP 97.6; O2SAT 92
[2023-10-25 12:32] LABS: BASOPHILS % (AUTO) 0.1 % (0.0-2.0); EOSINOPHILS % (AUTO) 0 % (1.0-6.0); HEMATOCRIT 44.8 % (41-53); HEMOGLOBIN 14.6 g/dL (13.5-17.5); LYMPHOCYTES # (AUTO) 0.7 K/uL (1.0-4.8); LYMPHOCYTES % (AUTO) 9.6 % (22.0-44.0); MEAN CORPUSCULAR HEMOGLOBIN 29.3 pg (26.0-34.0); MEAN CORPUSCULAR HGB CONC 32.5 G/dL (31.0-37.0); MEAN CORPUSCULAR VOLUME 90 fL (80-100); MONOCYTES # (AUTO) 0.5 K/uL (0.1-1.0); MONOCYTES % (AUTO) 6.3 % (2.0-9.0); NEUTROPHILS # (AUTO) 6.1 K/uL (1.8-7.7); PLATELET COUNT (AUTO) 242 K/uL (150-450); RED BLOOD CELL COUNT(AUTO) 4.97 MIL/uL (4.50-5.90); RED CELL DISTRIBUTION WIDTH 15.1 % (11.5-14.5); WHITE BLOOD COUNT (AUTO) 7.3 K/uL (4.5-11.0)
[2023-10-25 12:44] LABS: ANION GAP 10 mmol/L (8-16); CALCIUM, TOTAL 8.4 mg/dL (8.8-10.5); CARBON DIOXIDE 29 mmol/L (22-29); CHLORIDE 100 mmol/L (98-107); CREATININE 1.02 mg/dL (0.60-1.30); GLOMERULAR FILTR. RATE CALC > 60 mL/min (>60); GLUCOSE,RANDOM 281 mg/dL (70-110); POTASSIUM 4.1 mmol/L (3.5-5.1); SODIUM SERUM 139 mmol/L (136-145); UREA NITROGEN, BLOOD 35 mg/dL (7-18)
[2023-10-25] MEDS: BENZONATATE 100 MG CAPSULE PO SCH (15:46)
[2023-10-25 15:57] VITALS: BP 102/66; PULSE 108; RESP 22; TEMP 97.9; O2SAT 93
[2023-10-25] MEDS: MINERAL OIL 133 ML ENEMA PR ONE (18:22)
[2023-10-25] MEDS: LACTULOSE 20 GM/30 ML SOLUTION UDCUP PO PRN (18:22)
[2023-10-25 20:03] VITALS: BP 136/92; PULSE 97; RESP 20; TEMP 97.3; O2SAT 92
[2023-10-25] MEDS: TAMSULOSIN HCL 0.4 MG CAPSULE PO SCH (21:17)
[2023-10-25] MEDS: BUDESONIDE 180 MCG/INH INHALER [120] IH SCH (21:17)
[2023-10-26] VITALS (8 sets, daily range): BP systolic 104–128; BP diastolic 62–88; PULSE 86–106; RESP 16–22; TEMP 97.6–97.9; O2SAT 90–96
[2023-10-26 06:47] LABS: BASOPHILS % (AUTO) 0.1 % (0.0-2.0); EOSINOPHILS % (AUTO) 0 % (1.0-6.0); HEMOGLOBIN 14.2 g/dL (13.5-17.5); LYMPHOCYTES # (AUTO) 0.9 K/uL (1.0-4.8); LYMPHOCYTES % (AUTO) 7.5 % (22.0-44.0); MEAN CORPUSCULAR HEMOGLOBIN 29.1 pg (26.0-34.0); MEAN CORPUSCULAR HGB CONC 32.3 G/dL (31.0-37.0); MEAN CORPUSCULAR VOLUME 90 fL (80-100); MONOCYTES # (AUTO) 0.7 K/uL (0.1-1.0); MONOCYTES % (AUTO) 6.1 % (2.0-9.0); PLATELET COUNT (AUTO) 250 K/uL (150-450); RED BLOOD CELL COUNT(AUTO) 4.89 MIL/uL (4.50-5.90); RED CELL DISTRIBUTION WIDTH 14.7 % (11.5-14.5); WHITE BLOOD COUNT (AUTO) 11.6 K/uL (4.5-11.0)
[2023-10-26 06:50] LABS: NEUTROPHILS % (AUTO) 86.3 % (40.0-70.0)
[2023-10-26 06:53] LABS: ANION GAP 9 mmol/L (8-16); CALCIUM, TOTAL 8.4 mg/dL (8.8-10.5); CARBON DIOXIDE 27 mmol/L (22-29); CHLORIDE 100 mmol/L (98-107); CREATININE 0.72 mg/dL (0.60-1.30); GLOMERULAR FILTR. RATE CALC > 60 mL/min (>60); GLUCOSE,RANDOM 162 mg/dL (70-110); POTASSIUM 4.2 mmol/L (3.5-5.1); SODIUM SERUM 136 mmol/L (136-145); UREA NITROGEN, BLOOD 37 mg/dL (7-18)
[2023-10-26 07:34] LABS: RBC MORPHOLOGY COMMENT NORMAL RBC MORPH
[2023-10-26 09:36] LABS: APPEARANCE,URINE CLEAR (CLEAR); BILIRUBIN,URINE NEGATIVE (NEGATIVE); COLOR,URINE YELLOW (YELLOW); GLUCOSE, URINE (UA) 70-100 mg/dL (NEGATIVE); KETONES,URINE NEGATIVE (NEGATIVE); LEUKOCYTE ESTERASE ,URINE NEGATIVE (NEGATIVE); NITRATE,URINE NEGATIVE (NEGATIVE); OCCULT BLOOD,URINE MODERATE (NEGATIVE); PH,URINE 5.5 (5.0-8.0); PROTEIN,URINE 30-70 mg/dL (NEGATIVE); SPECIFIC GRAVITIY, URINE 1.032 (1.003-1.030); UROBILINOGEN,URINE <=1.0 mg/dL (<=1.0)
[2023-10-26 09:45] LABS: BACTERIA,URINE None Seen /HPF (None Seen); SQUAMOUS EPITHELIAL CELL,UR Few /LPF (None Seen); WBC,URINE 0-2 /HPF (0-5)
[2023-10-26] MEDS ORDERED: BISACODYL 5 MG EC TABLET PO PRN (11:30)
[2023-10-26] MEDS: BISACODYL 10 MG RECTAL RECTAL SUPPOSITORY PR PRN (13:42)
[2023-10-26] MEDS: HEPARIN SODIUM,PORCINE 5,000 UNITS/ML VIAL SQ SCH (15:07)
[2023-10-27] VITALS (7 sets, daily range): BP systolic 121–138; BP diastolic 74–85; PULSE 69–106; RESP 18–20; TEMP 97.3–98; O2SAT 90–96
[2023-10-27] MEDS ORDERED: SODIUM CHLORIDE 0.9% 250 ML IV ONE (11:00)
[2023-10-27] MEDS ORDERED: LORazepam 0.5 MG TABLET PO PRN (11:15)
[2023-10-27] MEDS: REMDESIVIR 200 MG in SODIUM CHLORIDE 0.9% 250 ML IV ONE (11:24)
[2023-10-27 12:04] LABS: BASOPHILS % (AUTO) 0.1 % (0.0-2.0); EOSINOPHILS % (AUTO) 0 % (1.0-6.0); HEMATOCRIT 40.8 % (41-53); HEMOGLOBIN 13.4 g/dL (13.5-17.5); LYMPHOCYTES # (AUTO) 0.6 K/uL (1.0-4.8); LYMPHOCYTES % (AUTO) 5.6 % (22.0-44.0); MEAN CORPUSCULAR HEMOGLOBIN 29.5 pg (26.0-34.0); MEAN CORPUSCULAR HGB CONC 32.9 G/dL (31.0-37.0); MEAN CORPUSCULAR VOLUME 90 fL (80-100); MONOCYTES # (AUTO) 0.7 K/uL (0.1-1.0); MONOCYTES % (AUTO) 6.9 % (2.0-9.0); PLATELET COUNT (AUTO) 248 K/uL (150-450); RED BLOOD CELL COUNT(AUTO) 4.55 MIL/uL (4.50-5.90); RED CELL DISTRIBUTION WIDTH 14.2 % (11.5-14.5); WHITE BLOOD COUNT (AUTO) 10.3 K/uL (4.5-11.0)
[2023-10-27 12:21] LABS: ALANINE AMINOTRANSFERASE 31 U/L (12-78); ALBUMIN 2.7 g/dL (3.4-5.0); ALKALINE PHOSPHATASE 69 U/L (46-116); ANION GAP 8 mmol/L (8-16); ASPARTATE AMINOTRANSFERASE 34 U/L (15-37); BILIRUBIN,TOTAL 0.3 mg/dL (0.1-1.0); CARBON DIOXIDE 30 mmol/L (22-29); CHLORIDE 100 mmol/L (98-107); CREATININE 0.84 mg/dL (0.60-1.30); GLOMERULAR FILTR. RATE CALC > 60 mL/min (>60); GLUCOSE,RANDOM 163 mg/dL (70-110); NEUTROPHILS % (AUTO) 87.4 % (40.0-70.0); POTASSIUM 4.3 mmol/L (3.5-5.1); SODIUM SERUM 138 mmol/L (136-145); UREA NITROGEN, BLOOD 30 mg/dL (7-18)
[2023-10-27 13:04] LABS: RBC MORPHOLOGY COMMENT NORMAL RBC MORPH
[2023-10-27] MEDS: OLANZapine 5 MG RAPDIS TABLET PO PRN (13:10)
[2023-10-28] VITALS (10 sets, daily range): BP systolic 113–136; BP diastolic 69–88; PULSE 92–128; RESP 18–20; TEMP 97.5–98.1; O2SAT 92–99
[2023-10-28] MEDS: DULoxetine HCL 30 MG CAPSULE PO SCH (09:35)
[2023-10-28] MEDS: REMDESIVIR 100 MG in SODIUM CHLORIDE 0.9% 250 ML IV SCH (12:34)
[2023-10-28] MEDS ORDERED: SODIUM CHLORIDE 0.9% 250 ML IV ONE (16:46)
[2023-10-28] MEDS: MethylPREDNISolone SOD SUCC 40 MG/ML VIAL IVP SCH (17:11)
[2023-10-29] VITALS (9 sets, daily range): BP systolic 108–133; BP diastolic 52–84; PULSE 76–124; RESP 18–20; TEMP 97.7–98.2; O2SAT 93–99
[2023-10-30 00:58] VITALS: BP 121/75; PULSE 113; RESP 18; TEMP 97.8; O2SAT 94
[2023-10-30 05:40] VITALS: BP 127/76; PULSE 125; RESP 19; TEMP 97.6; O2SAT 89
[2023-10-30 08:00] VITALS: BP 127/87; PULSE 120; RESP 21; TEMP 97.8; O2SAT 93
[2023-10-30 14:24] VITALS: BP 128/69; PULSE 124; RESP 18; TEMP 97.5; O2SAT 91
[2023-10-30] MEDS: PredniSONE 20 MG TABLET PO SCH (15:48)
[2023-10-30 16:00] VITALS: BP 138/88; PULSE 102; RESP 20; TEMP 97.9; O2SAT 94
[2023-10-30 19:22] LABS: BASOPHILS % (AUTO) 0.2 % (0.0-2.0); EOSINOPHILS % (AUTO) 0 % (1.0-6.0); HEMATOCRIT 46.4 % (41-53); HEMOGLOBIN 14.6 g/dL (13.5-17.5); LYMPHOCYTES # (AUTO) 0.5 K/uL (1.0-4.8); LYMPHOCYTES % (AUTO) 4.8 % (22.0-44.0); MEAN CORPUSCULAR HEMOGLOBIN 29.1 pg (26.0-34.0); MEAN CORPUSCULAR HGB CONC 31.4 G/dL (31.0-37.0); MEAN CORPUSCULAR VOLUME 93 fL (80-100); MONOCYTES # (AUTO) 1.3 K/uL (0.1-1.0); MONOCYTES % (AUTO) 13.6 % (2.0-9.0); NEUTROPHILS # (AUTO) 7.6 K/uL (1.8-7.7); NEUTROPHILS % (AUTO) 81.4 % (40.0-70.0); PLATELET COUNT (AUTO) 187 K/uL (150-450); RED BLOOD CELL COUNT(AUTO) 5.01 MIL/uL (4.50-5.90); RED CELL DISTRIBUTION WIDTH 15.5 % (11.5-14.5); WHITE BLOOD COUNT (AUTO) 9.4 K/uL (4.5-11.0)
[2023-10-30 20:30] VITALS: BP 130/89; PULSE 116; RESP 20; TEMP 96.4; O2SAT 95
[2023-10-31 00:20] VITALS: BP 122/79; PULSE 123; RESP 22; TEMP 97.9; O2SAT 95
[2023-10-31 04:30] VITALS: BP 126/71; PULSE 110; RESP 22; TEMP 98.1; O2SAT 94
[2023-10-31 08:08] VITALS: PULSE 119; RESP 18; O2SAT 93
[2023-10-31 09:22] VITALS: BP 123/82; PULSE 119; RESP 18; TEMP 97.5; O2SAT 93
[2023-10-31] MEDS ORDERED: SODIUM CHLORIDE 0.9% 250 ML IV ONE (11:32)
[2023-10-31 20:30] VITALS: BP 131/85; PULSE 116; RESP 20; TEMP 98.3; O2SAT 95
[2023-11-01] VITALS (8 sets, daily range): BP systolic 113–130; BP diastolic 75–92; PULSE 89–125; RESP 18–20; TEMP 96.7–98.2; O2SAT 90–100
[2023-11-01 07:02] LABS: COVID AG,FIA SOURCE NASAL SWAB
[2023-11-01 07:28] LABS: SARS-COV2 (COVID) ANTIGEN,FIA Negative (Negative)
[2023-11-01] MEDS ORDERED: BUDESONIDE 0.5 MG/2 ML NEB SOLUTION NEB ONE (08:18)
[2023-11-02] VITALS (8 sets, daily range): BP systolic 110–130; BP diastolic 75–93; PULSE 81–124; RESP 17–20; TEMP 97.4–98.1; O2SAT 90–97
[2023-11-02 20:54] LABS: BASOPHILS % (AUTO) 0.6 % (0.0-2.0); EOSINOPHILS % (AUTO) 0.1 % (1.0-6.0); HEMATOCRIT 45.7 % (41-53); HEMOGLOBIN 14.6 g/dL (13.5-17.5); LYMPHOCYTES # (AUTO) 0.5 K/uL (1.0-4.8); LYMPHOCYTES % (AUTO) 3.6 % (22.0-44.0); MEAN CORPUSCULAR HEMOGLOBIN 28.7 pg (26.0-34.0); MEAN CORPUSCULAR VOLUME 90 fL (80-100); MONOCYTES # (AUTO) 0.8 K/uL (0.1-1.0); MONOCYTES % (AUTO) 6.4 % (2.0-9.0); NEUTROPHILS # (AUTO) 11.7 K/uL (1.8-7.7); PLATELET COUNT (AUTO) 245 K/uL (150-450); RED CELL DISTRIBUTION WIDTH 14.9 % (11.5-14.5); WHITE BLOOD COUNT (AUTO) 13.1 K/uL (4.5-11.0)
[2023-11-02 20:55] LABS: NEUTROPHILS % (AUTO) 89.3 % (40.0-70.0)
[2023-11-02 21:03] LABS: ANION GAP 5 mmol/L (8-16); CALCIUM, TOTAL 8.4 mg/dL (8.8-10.5); CARBON DIOXIDE 33 mmol/L (22-29); CHLORIDE 99 mmol/L (98-107); CREATININE 0.99 mg/dL (0.60-1.30); GLOMERULAR FILTR. RATE CALC > 60 mL/min (>60); GLUCOSE,RANDOM 312 mg/dL (70-110); POTASSIUM 4.5 mmol/L (3.5-5.1); SODIUM SERUM 137 mmol/L (136-145); UREA NITROGEN, BLOOD 38 mg/dL (7-18)
[2023-11-02 21:06] LABS: PLATELET MORPHOLOGY COMMENT LARGE PLTS PRESENT; RBC MORPHOLOGY COMMENT NORMAL RBC MORPH
[2023-11-03] VITALS (7 sets, daily range): BP systolic 111–121; BP diastolic 70–84; PULSE 86–115; RESP 18–20; TEMP 97–97.9; O2SAT 93–96
[2023-11-03] MEDS: CARVEDILOL 6.25 MG TABLET PO SCH (12:24)
[2023-11-04] MEDS ORDERED: PredniSONE 10 MG TABLET PO SCH (09:00)
== END 2023-11-03 17:35 | DRG 137 ==
LOC: 5S 12:30
PROVIDERS: ADMIT Internal Medicine; ATTEND Internal Medicine
PROC: XW033E5 Introduction of Remdesivir Anti-infective into Peripheral Vein, Percutaneous Approach, New Technology Group 5 (ICD-10-PCS; principal; 2023-10-27)
DX: U07.1 COVID-19 (principal); J96.01 Acute respiratory failure with hypoxia; R65.11 Systemic inflammatory response syndrome (SIRS) of non-infectious origin with acute organ dysfunction; F25.9 Schizoaffective disorder, unspecified; J44.1 Chronic obstructive pulmonary disease with (acute) exacerbation; E03.9 Hypothyroidism, unspecified; E78.5 Hyperlipidemia, unspecified; I10 Essential (primary) hypertension; R33.9 Retention of urine, unspecified; K59.00 Constipation, unspecified; Z79.899 Other long term (current) drug therapy; Z88.0 Allergy status to penicillin; E44.0 Moderate protein-calorie malnutrition; Z68.23 Body mass index [BMI] 23.0-23.9, adult
CPT/HCPCS: 0241U; 71045; 74018; 80048; 80053; 81001; 85025; 94640; 99285; J0456; J1644; J2919; J3535; J7030; J7050; 36415-L1; 36415-TC; J7613

== ENCOUNTER → 2024-03-31 | Emergency (ER) | payer MEDICARE, OTHER ==
[~2024-03-31] VITALS: Ht 170.2 cm; Wt 65.5 kg
[~2024-03-31] MED LIST changes: +ACET-2247 PO; +ALBU2.5V39 NEB; -AMLO2.5T96 PO; +BISA10SU11 PR; +CHOL25TA4 PO; +DOCU50LI40 PO; -DULO-114 PO; -DULO20CA71 PO; +FAMO20 PO; +HEPA500018 SQ; +LEVO750T68 PO; -LURA40TA2 PO; -LURA80TA2 PO; +MAGN-169 PO; -MELA5TAB40 PO; +MULT-264 PO; +PRED-554 PO; +[UNRECOGNIZED DRUG - CODE] IV
[2024-03-31 12:54] VITALS: TEMP 97.7
[2024-03-31 13:33] LABS: BASOPHILS % (AUTO) 1.1 % (0.0-2.0); EOSINOPHILS % (AUTO) 4.2 % (1.0-6.0); HEMATOCRIT 41.2 % (41-53); HEMOGLOBIN 13.1 g/dL (13.5-17.5); LYMPHOCYTES # (AUTO) 1.8 K/uL (1.0-4.8); LYMPHOCYTES % (AUTO) 22.9 % (22.0-44.0); MEAN CORPUSCULAR HEMOGLOBIN 26.7 pg (26.0-34.0); MEAN CORPUSCULAR HGB CONC 31.9 G/dL (31.0-37.0); MEAN CORPUSCULAR VOLUME 84 fL (80-100); MONOCYTES # (AUTO) 0.8 K/uL (0.1-1.0); MONOCYTES % (AUTO) 11.1 % (2.0-9.0); NEUTROPHILS # (AUTO) 4.6 K/uL (1.8-7.7); NEUTROPHILS % (AUTO) 60.7 % (40.0-70.0); PLATELET COUNT (AUTO) 335 K/uL (150-450); RED BLOOD CELL COUNT(AUTO) 4.92 MIL/uL (4.50-5.90); RED CELL DISTRIBUTION WIDTH 15.8 % (11.5-14.5); WHITE BLOOD COUNT (AUTO) 7.6 K/uL (4.5-11.0)
[2024-03-31 13:35] LABS: CARBON DIOXIDE 37 mmol/L (22-29); CREATININE 0.74 mg/dL (0.60-1.30); GLOMERULAR FILTR. RATE CALC > 60 mL/min (>60); GLUCOSE,RANDOM 126 mg/dL (70-110); UREA NITROGEN, BLOOD 20 mg/dL (7-18)
[2024-03-31 13:38] LABS: CHLORIDE 106 mmol/L (98-107); POTASSIUM 4.3 mmol/L (3.5-5.1); SODIUM SERUM 142 mmol/L (136-145)
[2024-03-31 13:41] LABS: ANION GAP 1 mmol/L (8-16)
[2024-03-31 15:48] LABS: APPEARANCE,URINE TURBID (CLEAR); BILIRUBIN,URINE NEGATIVE (NEGATIVE); COLOR,URINE YELLOW (YELLOW); GLUCOSE, URINE (UA) NEGATIVE (NEGATIVE); KETONES,URINE NEGATIVE (NEGATIVE); LEUKOCYTE ESTERASE ,URINE LARGE (NEGATIVE); NITRATE,URINE NEGATIVE (NEGATIVE); OCCULT BLOOD,URINE LARGE (NEGATIVE); PH,URINE 7.5 (5.0-8.0); PROTEIN,URINE TRACE mg/dL (NEGATIVE); SPECIFIC GRAVITIY, URINE 1.013 (1.003-1.030); UROBILINOGEN,URINE <=1.0 mg/dL (<=1.0)
[2024-03-31 16:02] LABS: RBC,URINE 26-50 /HPF (0-2)
[2024-03-31 16:03] LABS: BACTERIA,URINE Moderate /HPF (None Seen); SQUAMOUS EPITHELIAL CELL,UR Few /LPF (None Seen)
[2024-03-31] MEDS: LEVOFLOXACIN 250 MG TABLET PO ONE (17:06)
[2024-03-31 18:15] VITALS: BP 125/79; PULSE 79; RESP 20; O2SAT 96
== END ==
LOC: EMS 12:25
DX: N39.0 Urinary tract infection, site not specified (principal); J44.9 Chronic obstructive pulmonary disease, unspecified; E78.00 Pure hypercholesterolemia, unspecified; E03.9 Hypothyroidism, unspecified; F20.9 Schizophrenia, unspecified; F17.210 Nicotine dependence, cigarettes, uncomplicated; Z88.0 Allergy status to penicillin; Z79.52 Long term (current) use of systemic steroids; Z79.899 Other long term (current) drug therapy
CPT/HCPCS: 80048; 81001; 85025; 87086; 99283